=== PATIENT | female | born 1940 | race Caucasian/White ===

== ENCOUNTER 2023-07-08 08:44 | Emergency (ER) | payer OTHER, SELFPAY ==
--- NOTE | 2023-07-08 08:53 | ED.GENMEDP ---
History of Present Illness Ped
General
Chief Complaint: Change in Mental Status
Source: ambulance crew
Time Seen by Provider: 07/08/23 08:52
Nursing documentation reviewed up to this point in time: agreed with
History of Present Illness
Initial Comments:
82-year-old female from home with history of HTN, pancreatic cancer for which she has chosen to not have treated and is DNR, occluded and migrated biliary stent, malnutrician, presents via EMS. EMS personnel state that the called them
because she was not responding as usual, she was only moaning and crying. They had been at a family reunion in [place] over the weekend and she was ambulating and acting her baseline normal. EMS states told them that typically this time
of the morning she is up and around and making breakfast. They report that he told them that she vomited twice yesterday.
07/08/2023 0925 AM
arrives at bedside. He states that he was unable to arouse her since 4 PM yesterday when she went to take a rest after a long drive home from [place] yesterday. During that ride she vomited twice. She came home went to bed and he has
not been able to get her to eat anything since, he did force her a few sips of water but she is not having any other intake.
He confirms that she is DNR, she does not want to be treated for pancreatic cancer, when her biliary stent was blocked in 02/2023 she was jaundiced and this is not the case today.
He is interested in hospice at this time, up until this point he says she was not ready for it.
Past Medical History Pediatric
Past Medical History
Past Medical History Pediatric: other (Pancreatic cancer)
Family/Social History
Tobacco: Non-smoker
Alcohol: None
Drug: None
Review of Systems Pediatric
Review of Systems Pediatric
All Other Systems: ROS reviewed and negative except as documented in HPI and ROS
Constitution: Reports fatigue; Denies fever
Respiratory: Denies trouble breathing
Cardiac: Denies chest pain
ABD/GI: Reports anorexia and decreased oral intake; Denies abdominal pain, diarrhea or vomiting
Musculoskeletal: Denies edema
Skin: Reports no symptoms
Pediatric Physical Exam
Physical Exam
Pediatric Physical Exam:
GENERAL: No acute distress. Elderly and frail. Somnolent, arouses to her name, she uses one word whisper responses then drifts back to sleep.
CONSTITUTIONAL: Afebrile.
EYES: PERRL, conjunctivae normal
ENMT: dry mucus membranes
RESPIRATORY: Regular respirations, nonlabored, lungs clear.
CARDIOVASCULAR: Regular rate and rhythm, no murmurs, no rubs.
GI: Soft, nontender, normal BS
MUSCULOSKELETAL: Laying in semi position, not moving independently. No edema. Well perfused.
SKIN: Warm, dry, pale. No jaundice
PSYCH:Depressed mood and affect. Well kept
NEUROLOGIC: Somnolent weakly responsive to questions and commands. No focal neurological deficits
Course
Orders/Labs/Results
Orders:
Orders
07/08/23 09:07
Complete Blood Count/With Diff Urgent
Comprehensive Metabolic Panel Urgent
Lipase Urgent
07/08/23 09:31
Urinalysis Reflex To Culture Urgent
Date Specimen was Collected: 07/08/23
Time Specimen was Collected: 09:22
Urine Microscopic Reflex Cult Urgent
07/08/23 10:37
0.9% Sodium Chloride 1000 ml [Nss] 1,000 ml IV BOLUS
Abnormal Lab Results
07/08/23 07/08/23
09:07 09:31
RBC 3.37 L 10^6/uL
(4.20-5.40)
Hgb 10.8 L g/dL
(12.0-16.0)
Hct 30.3 L %
(37.0-47.0)
MCH 32.0 H pg
(27.0-31.0)
RDW 14.7 H %
(11.5-14.5)
Plt Count 120 L 10^3/uL
(130-400)
MPV 11.9 H fL
(7.4-10.4)
Abs Immat Gran (auto) 0.1 H 10^3/uL
(0-0.05)
Absolute Neuts (auto) 8.4 H 10^3/uL
(1.4-6.5)
Absolute Lymphs (auto) 0.9 L 10^3/uL
(1.2-3.4)
Neutrophils % 87.6 H %
(42.2-75.2)
Lymphocytes % 9.9 L %
(20.5-51.1)
Monocytes % 1.5 L %
(1.7-9.3)
Chloride 111 H mmol/L
(98-107)
BUN 65 H mg/dl
(7-17)
Total Bilirubin 2.4 H mg/dl
(0.2-1.3)
AST 239 H U/L
(14-36)
ALT 214 H U/L
(0-35)
Alkaline Phosphatase 363 H U/L
(38-126)
Total Protein 5.7 L g/dl
(6.3-8.2)
Albumin 2.9 L g/dl
(3.5-5.0)
Lipase 19 L U/L
(23-300)
Urine Ketones Trace A
(Negative)
Ur Occult Blood Reflex 1+ A
(Negative)
Urine RBC 3-6 A /HPF
(0-2)
Urine Bacteria (Reflex) Few A
(Negative)
07/08/23 09:07
07/08/23 09:07
Vital Signs
Initial and Last Documented VS:
Initial Vital Signs
Temp Pulse Resp BP Pulse Ox
98.9 F 75 12 153/94 98
07/08/23 08:58 07/08/23 08:58 07/08/23 08:58 07/08/23 08:58 07/08/23 08:58
Last Documented Vital Signs
Temp Pulse Resp BP Pulse Ox
98.9 F 86 21 152/70 98
07/08/23 08:58 07/08/23 12:15 07/08/23 12:15 07/08/23 12:00 07/08/23 12:15
Fisher Troll Line consulted with Physician
Fisher Troll Line consulted with physician?: Yes
Name of Physician Consulted: Ricardo
MDM/Problems Addressed
Differential Diagnosis Includes:
UTI, blocked biliary stents, dehydration, progressive pancreatic CA
MDM/Problems Addressed:
82-year-old female from home with history of HTN, pancreatic cancer for which she has chosen to not have treated and is DNR, occluded and migrated biliary stent, malnutrician, presents via EMS. EMS personnel state that the called them
because she was not responding as usual, she was only moaning and crying. They had been at a family reunion in [place] over the weekend and she was ambulating and acting her baseline normal. EMS states told them that typically this time
of the morning she is up and around and making breakfast. They report that he told them that she vomited twice yesterday.
07/08/2023 0925 AM
arrives at bedside. He states that he was unable to arouse her since 4 PM yesterday when she went to take a rest after a long drive home from [place] yesterday. During that ride she vomited twice. She came home went to bed and he has
not been able to get her to eat anything since, he did force her a few sips of water but she is not having any other intake.
He confirms that she is DNR, she does not want to be treated for pancreatic cancer, when her biliary stent was blocked in 02/2023 she was jaundiced and this is not the case today.
He is interested in hospice at this time, up until this point he says she was not ready for it.
07/08/2023 0951 AM
CBC abnormal but with no clinically significant abnormality
CMP: BUN 65, liver enzymes elevated but consistent with her baseline
Lipase within normal limits
U/A is neg
Spoke with who has discussed Hospice in past with daughter but up until yesterday pt no ready for it. He is requesting it now.
Consulted Hosp[facility] who will be in.
07/08/2023 1040 AM
Yolanda is an talking with the and family
They are requesting IV hydration
Yolanda has offered to have hospice come to the home tomorrow with all of the equipment they need.
Pt is not unstable, not actively dying, it is reasonable to hydrate here and have family encourage po fluids at home, if she won't take po, all the more reason Hospice is needed.
07/08/2023 1201 PM
1 L IV fluids infused. Patient has no change in mental state.
Patient's and daughter at bedside, they are on board with transporting patient home
*Critical Care Note
Total Time (30-74mins, 75-104mins- exclusive of procedures): Not Applicable
ED Attending Note
-
Portions of this chart may have been created with voice recognition software.� Occasional wrong word or��sound alike� substitutions may have occurred due to the inherent limitations of voice recognition software.
Discharge Plan
Departure
Patient Disposition: Home (Routine Discharge)
Date of Disposition: 07/08/23
Time of Disposition: 12:36
Patient with high blood pressure during this ER visit?: No
Condition: Fair
Discharge Problem:
Acute dehydration, Pancreatic cancer
Prescriptions:
No Action
ascorbic acid (vitamin C) [Vitamin C] 500 mg Tablet
2,000 mg PO DAILY
vitamin B complex Capsule
1 cap PO DAILY
aspirin 81 mg Tablet,Delayed Release (Dr/Ec)
81 mg PO DAILY
cholecalciferol (vitamin D3) [Vitamin D3] 50 mcg (2,000 unit) Tablet
50 mcg PO DAILY
lecithin 1,000 mg Tablet,Chewable
1,000 mg PO DAILY
acetaminophen [Tylenol Extra Strength] 500 mg Tablet
500 mg PO Q6HPRN PRN (Reason: mild pain)
Referrals:
Hospice, Team [Other] - Tomorrow
Kahlil Mortensen MD [Family Provider] -
Activity Restrictions/Additional Instructions:
As we discussed, the hospice team will contact you tomorrow
You may encourage fluids but not forcefully
Interventions
Interventions:
*Risk Screen - Suicide Last Done: 07/08/23 09:01
*General Assessment Last Done: 07/08/23 09:01
*Neglect/Abuse Screening Last Done: 07/08/23 09:01
ED- Fall Risk Assessment Last Done: 07/08/23 09:33
*ED COVID-19 Vaccine History Last Done: 07/08/23 09:05
*Nursing Disposition Last Done: 07/08/23 14:26
ED- Pulmonary Assessment Last Done: 07/08/23 09:06
ED-Psychological Assessment Last Done: 07/08/23 09:19
ED- Neurological Assessment Last Done: 07/08/23 09:06
ED- Cardiac Assessment Last Done: 07/08/23 09:05
ED Swallowing Screen Last Done: 07/08/23 09:33
Discharge Date and Time
Discharge Date/Time: 07/08/23 14:28
[2023-07-08 08:58] VITALS: BP 153/94
[2023-07-08 09:00] VITALS: BP 159/68
[2023-07-08 09:22] LABS: % Basophils 0.5 % (0-2); % Immature Granulocytes 0.5 % (0-0.5); % Lymphocytes 9.9 % (20.5-51.1); % Monocytes 1.5 % (1.7-9.3); % Neutrophils 87.6 % (42.2-75.2); Absolute Basophils 0.1 10^3/uL (0-0.2); Absolute Immature Granulocytes 0.1 10^3/uL (0-0.05); Absolute Lymphocytes 0.9 10^3/uL (1.2-3.4); Absolute Monocytes 0.1 10^3/uL (0.1-0.6); Absolute Neutrophils 8.4 10^3/uL (1.4-6.5); Hematocrit 30.3 % (37.0-47.0); Hemoglobin 10.8 g/dL (12.0-16.0); Mean Corp Hgb Conc. 35.6 g/dL (33.0-37.0); Mean Corpuscular Volume 89.9 fL (81.0-99.0); Mean Platelet Volume 11.9 fL (7.4-10.4); Nucleated Red Blood Cells % 0.2 %; Platelet Count 120 10^3/uL (130-400); Red Blood Cell Count 3.37 10^6/uL (4.20-5.40); Red Cell Dist. Width 14.7 % (11.5-14.5); White Blood Cell Count 9.5 10^3/uL (4.8-10.8)
[2023-07-08 09:29] VITALS: BP 155/68
[2023-07-08 09:34] LABS: ALT (SGPT) 214 U/L (0-35); AST (SGOT) 239 U/L (14-36); Albumin 2.9 g/dl (3.5-5.0); Alkaline Phosphatase 363 U/L (38-126); Blood Urea Nitrogen 65 mg/dl (7-17); Calcium 8.7 mg/dl (8.4-10.2); Carbon Dioxide 23 mmol/L (22-30); Chloride 111 mmol/L (98-107); Glucose 92 mg/dl (70-99); Lipase 19 U/L (23-300); Potassium 3.7 mmol/L (3.5-5.1); Sodium 140 mmol/L (135-145); Total Bilirubin 2.4 mg/dl (0.2-1.3); Total Protein 5.7 g/dl (6.3-8.2); eGFR > 60.00
[2023-07-08 09:46] LABS: Urine Albumin Trace (Neg - Trace); Urine Bilirubin Negative (Negative); Urine Character Clear (Clear); Urine Color Yellow; Urine Glucose Negative (Negative); Urine Ketone Trace (Negative); Urine Leukocyte Negative (Negative); Urine Nitrite Negative (Negative); Urine Occult Blood 1+ (Negative); Urine Urobilinogen Negative (Neg - 1+)
[2023-07-08 09:56] LABS: Urine Bacteria Few (Negative); Urine Squamous Cell 0-2 /LPF (Few); Urine White Cell 0-2 /HPF (0-5)
[2023-07-08 10:00] VITALS: BP 144/59
[2023-07-08 11:00] VITALS: BP 135/58
[2023-07-08] MEDS: NSS 1000 IV (11:06)
[2023-07-08 12:00] VITALS: BP 152/70
--- NOTE | 2023-07-08 12:32 | HOSPNOTE ---
Met with family and discussed hospice and the philosophy, the family would like patient hydrated IV and then patient will go home via ambulance and we will sign onto hospice services with hospice. Attending in agreement with plan. There will be
no equipment needed and patient will need transport to get home.
--- NOTE | 2023-07-08 15:46 | CM ---
Post discharge, Hospice requesting CM assistance with referral to hospice
Pt discharged home from ED with Hospice
Referral and clinicals sent via [facility]
== END 2023-07-08 14:28 | disposition home or self-care (01) ==
LOC: EMR 08:44
PROVIDERS: Registered Nurse; EMERGENCY PHYSICIAN Emergency Medicine; FAMILY PHYSICIAN Family Medicine
DX: E86.0 Dehydration (principal); R11.10 Vomiting, unspecified; C25.9 Malignant neoplasm of pancreas, unspecified; I10 Essential (primary) hypertension; F41.9 Anxiety disorder, unspecified
CPT/HCPCS: 99284; 96360; 51701; 80053; 81003; 81015; 83690; 85025